=== PATIENT | male | born 1950 | race Caucasian/White ===

== ENCOUNTER → 2024-04-26 15:56 | Outpatient (REF) | payer OTHER, SELFPAY | LOC: RCS 15:56 | PROVIDERS: ATTENDING PHYSICIAN Family Medicine | DX: I48.19 Other persistent atrial fibrillation (principal) | CPT/HCPCS: 71046; 93306 ==

== ENCOUNTER → 2024-05-15 07:52 | Outpatient (REF) | payer OTHER, SELFPAY | LOC: RAD 07:52 | PROVIDERS: ATTENDING PHYSICIAN Family Medicine | DX: R91.8 Other nonspecific abnormal finding of lung field (principal) | CPT/HCPCS: 71260; Q9967 ==

== ENCOUNTER → 2024-06-19 15:21 | Outpatient (REF) | payer OTHER, SELFPAY | LOC: RAD 15:21 | PROVIDERS: ATTENDING PHYSICIAN Internal Medicine; FAMILY PHYSICIAN Family Medicine | DX: R91.8 Other nonspecific abnormal finding of lung field (principal) | CPT/HCPCS: 71250 ==

== ENCOUNTER 2024-06-26 06:36 | Day surgery (SDC) | payer OTHER, SELFPAY ==
[2024-06-21 07:50] VITALS: BMI 29.9
[2024-06-21 09:12] LABS: APTT 32.7 Sec (23.4-35.0); INR 3.02; PT 31.7 Sec (11.4-14.6)
--- NOTE | 2024-06-22 11:03 | PTCARENOTE ---
Abnormal INR 3.02 on 06/21/24. Jacklyn at Dr. Mcdaniel's office aware.
[2024-06-26] VITALS (7 sets, daily range): BP systolic 123–160; BP diastolic 87–106; BMI 28.7
[2024-06-26] MEDS: DUONEB 3 ML INH (12:15)
--- NOTE | 2024-06-26 12:43 | PTCARENOTE ---
[place] body wt: 169lbs. IS 3000
== END 2024-06-26 15:42 | disposition home or self-care (01) ==
LOC: GI 06:36
PROVIDERS: ATTENDING PHYSICIAN Internal Medicine Critical Care Medicine; FAMILY PHYSICIAN Family Medicine
DX: D14.31 Benign neoplasm of right bronchus and lung (principal); R59.0 Localized enlarged lymph nodes; R91.1 Solitary pulmonary nodule; R91.8 Other nonspecific abnormal finding of lung field
CPT/HCPCS: 31629; 31623; 31624; 31627; 31654; 88173; 36415; 71045; 76000; 85610; 85730; 87015; 87070; 87102; 87116; 87205; 88112; 94640; C1887

== ENCOUNTER 2024-07-07 08:38 | Emergency (ER) | payer OTHER, SELFPAY ==
[2024-07-07 08:49] VITALS: BP 153/91
--- NOTE | 2024-07-07 09:09 | ED.GENMED ---
History of Present Illness
General
Chief Complaint: Rectal Bleeding
Source: patient
Exam Limitations: none
Time Seen by Provider: 07/07/24 08:55
Nursing documentation reviewed up to this point in time: agreed with
History of Present Illness
History of Present Illness:
73-year-old male with a past medical history of hypertension, atrial fibrillation on Eliquis who presents to the emergency department for evaluation of rectal bleeding. Patient reports that for the past 2 to 3 days he has passed bright red blood
with bowel movements. He says that initially it started as small specks of blood mixed in with his stool. Also noted some blood on the toilet tissue. He says he used hemorrhoids suppositories thinking that blood was from hemorrhoids. He says
that this morning had more significant amount of bright red blood�he reports that he passed blood prior to the stool and then passed stool coated with bright red blood. Came to the emergency room for evaluation. He has not had any abdominal pain.
He has not had any nausea or vomiting. He has not had any chest pain, shortness of breath, dizziness. He he is notably on Eliquis; he says that he previously had been on Coumadin but was changed to Eliquis a little over a week ago by his primary
doctor.
Review of Systems
Review of Systems
All Other Systems: ROS reviewed and negative except as documented in HPI and ROS
Constitutional: Denies fever
Respiratory: Denies trouble breathing
Cardiac: Denies chest pain, palpitations or syncope
ABD/GI: Reports bloody stools; Denies abdominal pain, nausea or vomiting
: Denies flank pain
Musculoskeletal: Denies neck pain or back pain
Neurological: Denies dizzy or headache
Phy Exam
Physical Exam
Physical Exam:
General: Awake, alert, oriented x3; no acute distress
Head: Normocephalic, atraumatic
Eyes: Conjunctiva normal, sclera anicteric
Throat: Airway intact, handling secretions
Neck: Trachea midline, supple without meningismus
Lungs: Breathing comfortably no distress
Heart: Regular rate
Abd: Soft, non distended, nontender
Rectal: External hemorrhoid no bleeding noted, palpable internal hemorrhoids, solid brown stool mixed with bright red blood in the rectal vault confirmed Hemoccult positive
Neuro: No gross deficits
Extremities: Warm and well-perfused
Scores
Heart Failure Risk
Heart Failure Risk Score: Not Applicable
Heart Score for Chest Pain Patients
STEMI patient?: Not applicable
Withdrawal Assessment of Alcohol
Withdrawal Assessment Completed?: Not applicable
Course
Orders/Labs/Results
Orders:
Orders
07/07/24 09:17
Type+Screen Urgent
Complete Blood Count/With Diff Urgent
Comprehensive Metabolic Panel Urgent
PTT Urgent
Prothrombin Time Urgent
07/07/24 09:42
ABO2 Urgent
BBK Wristband Number:
Associate notified that ABO2 has been ordered: [id number]
Date: 07/07/24
Time: 09:38
[employer] Clerk ID: [id number]
07/07/24 12:35
H&H Urgent
Abnormal Lab Results
07/07/24
09:17
Absolute Lymphs (auto) 0.7 L 10^3/uL
(1.2-3.4)
Neutrophils % 82.5 H %
(42.2-75.2)
Lymphocytes % 10.5 L %
(20.5-51.1)
PT 15.2 H Sec
(11.4-14.6)
Carbon Dioxide 21 L mmol/L
(22-30)
Glucose 113 H mg/dl
(70-99)
07/07/24 12:35
07/07/24 09:17
Vital Signs
Initial and Last Documented VS:
Initial Vital Signs
Temp Pulse Resp BP Pulse Ox
36.5 C 92 18 153/91 100
07/07/24 08:49 07/07/24 08:49 07/07/24 08:49 07/07/24 08:49 07/07/24 08:49
Last Documented Vital Signs
Temp Pulse Resp BP Pulse Ox
36.9 C 86 20 136/71 99
07/07/24 12:41 07/07/24 12:41 07/07/24 12:41 07/07/24 12:41 07/07/24 12:41
MDM/Problems Addressed
Differential Diagnosis Includes:
Lower GI bleeding: Hemorrhoids, diverticular bleed, AVM, polyp/mass, etc
MDM/Problems Addressed:
73-year-old male with history notable for A-fib on Eliquis presents for bright red blood per rectum. Hypertensive to 153/91, pulse in the 90s, vitals otherwise normal. Physical exam as above�notably he does have external hemorrhoids which are not
from posterior bleeding and he has palpable internal hemorrhoids however his stool in the rectal vault was mixed with blood. Will plan to place an IV check labs including a CBC and a CMP, coags, type and screen. Will monitor patient on telemetry
and reassess after the above.
Labs reviewed: CBC normal including hemoglobin of 15.5. CMP no clinically significant abnormalities. Vital signs have remained stable and he has not had any rectal bleeding here in the emergency room. He continues to feel well. I spoke with the
patient�I suspect this is likely hemorrhoidal bleeding, I explained that he is higher risk with GI bleeds due to his anticoag elation and I recommended admission for trending of hemoglobin and monitoring of bleeding. He is adamant that he will not
stay in the hospital. We had a long discussion and ultimately he is agreeable to stay for a repeat hemoglobin at noon; if this is stable we will discharge in keeping with his wishes.
Hemoglobin stable on repeat. Vitals have been stable. No additional bleeding here. Will discharge with suppositories for her hemorrhoids, bowel regimen. Advised to hold his Eliquis this evening. Follow-up with PCP and GI. He feels comfortable
with this plan. Spoke in detail about return precautions and all questions were answered.
Chronic conditions affecting care:
A-fib on Eliquis complicates GI bleeding
Acute Exacerbation and/or Progression of Chronic Illness:
Acutely hypertensive
*Pulse Oximetry
Patient hypoxic: no
*Critical Care Note
Total Time (30-74mins, 75-104mins- exclusive of procedures): Not Applicable
Data Reviewed
Source: patient
Patient Management
Escalation/DeEscalation of care consider admission/obs:
Recommended admission but patient is resistant to hospital stay�using shared decision making discharge with strict return precautions
ED Attending Note
-
Portions of this chart may have been created with voice recognition software.� Occasional wrong word or��sound alike� substitutions may have occurred due to the inherent limitations of voice recognition software.
Discharge Plan
Departure
Patient Disposition: Home (Routine Discharge)
Date of Disposition: 07/07/24
Time of Disposition: 12:56
Patient with high blood pressure during this ER visit?: Yes
Discharge Problem:
Rectal bleeding, Hemorrhoids
Instructions: Hemorrhoids (DC)
Prescriptions:
New
docusate sodium [Colace] 100 mg capsule
100 mg PO DAILY Qty: 30 0RF
Hemorrhoidal 0.25-3 % suppository
1 supp DE BID Qty: 12 0RF
No Action
diltiazem HCl 240 mg Tablet Extended Release 24 Hr
240 mg PO QPM
Eliquis 5 mg Tablet
5 mg PO BID
Beet Root
1 dose PO QPM
Rolaids 550-110 mg Tablet,Chewable
1 tab PO HS
prednisolone acetate 1 % Drops,Suspension
1 drp RIGHT EYE Q48H
docusate sodium [Colace] 100 mg Capsule
100 mg PO DAILY
dorzolamide-timolol (PF) [Cosopt (PF)] 2-0.5 % Dropperette
1 drp RIGHT EYE BID
Referrals:
Beto Romero MD [Active] - Call in 1-3 days for appt (GI doctor)
Wade Banuelos MD [Family Provider] -
Activity Restrictions/Additional Instructions:
Thank you for visiting the Emergency Department at [facility].
1. Please schedule a follow up appointment as directed. Call first thing tomorrow morning to make an appointment.
2. If indicated, please take your medications as instructed and indicated on discharge paperwork.
3. If any of your symptoms do not improve, or persist, or become more severe within 6-12 hours, please return to the emergency department for further care.
4. Please return to the emergency department if you develop a headache, neck pain/stiffness, fever greater than 100.4F, chest pain, shortness of breath, persistent nausea, vomiting, slurred speech, difficulty walking, numbness/tingling, weakness,
signs of infection or any other symptoms that are worrisome to you.
Please call [phone] if you have any questions.
Interventions
Interventions:
*Risk Screen - Suicide Last Done: 07/07/24 08:49
*General Assessment Last Done: 07/07/24 09:28
*Neglect/Abuse Screening Last Done: 07/07/24 08:49
ED- Fall Risk Assessment Last Done: 07/07/24 09:28
*ED COVID-19 Vaccine History Last Done: 07/07/24 08:49
IR-Vflvzn-Rnifunvprz Assessment Last Done: 07/07/24 09:28
ED- Cardiac Assessment Last Done: 07/07/24 09:28
ED- Pulmonary Assessment Last Done: 07/07/24 09:28
Discharge Date and Time
Print Language: [place]
[2024-07-07 09:18] VITALS: BP 128/99
[2024-07-07 09:28] VITALS: BP 128/99; BMI 27.4
[2024-07-07 09:31] LABS: % Basophils 0.3 % (0-2); % Eosinophils 0.3 % (0-6); % Immature Granulocytes 0.4 % (0-0.5); % Lymphocytes 10.5 % (20.5-51.1); % Neutrophils 82.5 % (42.2-75.2); Absolute Lymphocytes 0.7 10^3/uL (1.2-3.4); Absolute Monocytes 0.4 10^3/uL (0.1-0.6); Absolute Neutrophils 5.6 10^3/uL (1.4-6.5); Hematocrit 44.9 % (39.0-52.0); Hemoglobin 15.5 g/dL (13.0-18.0); Mean Corp Hgb Conc. 34.5 g/dL (33.0-37.0); Mean Corpuscular Hgb 29.5 pg (27.0-31.0); Mean Corpuscular Volume 85.4 fL (80.0-94.0); Mean Platelet Volume 8.6 fL (7.4-10.4); Nucleated Red Blood Cells % 0 % (-); Platelet Count 167 10^3/uL (130-400); Red Blood Cell Count 5.26 10^6/uL (4.70-6.10); Red Cell Dist. Width 13.9 % (11.5-14.5); White Blood Cell Count 6.8 10^3/uL (4.8-10.8)
[2024-07-07 09:41] LABS: INR 1.21; PT 15.2 Sec (11.4-14.6)
[2024-07-07 09:42] LABS: APTT 26.6 Sec (23.4-35.0)
[2024-07-07 09:48] LABS: ALT (SGPT) 20 U/L (0-50); AST (SGOT) 21 U/L (17-59); Albumin 4.5 g/dl (3.5-5.0); Alkaline Phosphatase 72 U/L (38-126); Blood Urea Nitrogen 19 mg/dl (9-20); Calcium 9.2 mg/dl (8.4-10.2); Carbon Dioxide 21 mmol/L (22-30); Chloride 106 mmol/L (98-107); Estimated Creatinine Clearance 52 ml/min; Glucose 113 mg/dl (70-99); Potassium 4.2 mmol/L (3.5-5.1); Sodium 143 mmol/L (135-145); Total Bilirubin 0.8 mg/dl (0.2-1.3); Total Protein 7.1 g/dl (6.3-8.2); eGFR > 60.00
[2024-07-07 10:00] VITALS: BP 130/90
--- NOTE | 2024-07-07 12:40 | EDRN ---
second H&H drawn and sent, PIV removed and manual pressure applied and pressure dressing applied, PIV removed per the pts request
[2024-07-07 12:41] VITALS: BP 136/71
[2024-07-07 12:41] LABS: Hematocrit 44.5 % (39.0-52.0); Hemoglobin 15.5 g/dL (13.0-18.0)
--- NOTE | 2024-07-07 13:00 | EDRN ---
Dr. Yu currently at the pts bedside speaking with the pt and providing discharge instructions for the pt
== END 2024-07-07 13:01 | disposition home or self-care (01) ==
LOC: EMR 08:38
PROVIDERS: EMERGENCY PHYSICIAN Emergency Medicine; FAMILY PHYSICIAN Family Medicine
DX: K64.8 Other hemorrhoids (principal); I10 Essential (primary) hypertension; I48.91 Unspecified atrial fibrillation; Z79.01 Long term (current) use of anticoagulants
CPT/HCPCS: 99283; 80053; 85014; 85018; 85025; 85610; 85730; 86850; 86900; 86901